=== PATIENT | female | born 1990 | race Caucasian/White ===

== ENCOUNTER 2024-08-15 09:48 | Outpatient (CLI) | payer BC, SELFPAY ==
--- NOTE | ~2024-08-15 | CT_ITS ---
CT scan of the Neck Technique: 2.5 mm axial scans were obtained through the neck after intravenous administration of 75 c c Omnipaque 350. Coronal and sagittal reconstructions of the neck were obtained. Dose reduction techn ique was used on this scan by utilizing automated exposure control and iterative reconstruction techn ique. The dose-length product (DLP) was 340.03 mGy-cm. Clinical History: Lymphadenitis Findings: There is no evidence of any significant cervical lymphadenopathy. Several small, nonenlarged jugulo- digastric and posterior cervical lymph nodes are noted bilaterally. Parapharyngeal spaces appear norm al bilaterally. The parotid and submandibular glands appear normal. The pharyngeal mucosal spaces appear normal. No soft tissue masses are seen in the neck. The thyroid gland appears normal. Images of the lung apices reveal no abnormalities. Impression: No significant abnormalities noted. Reviewed, dictated and finalized at [facility]. Impression: No significant abnormalities noted.
== END 2024-08-15 09:49 | disposition home or self-care (01) ==
LOC: MICIMG 09:50
PROVIDERS: PCP Nurse Practitioner; Visit Provider Family Medicine
DX: I88.9 Nonspecific lymphadenitis, unspecified (principal)
CPT/HCPCS: 70491; Q9967

== ENCOUNTER 2024-10-11 13:41 | Outpatient (CLI) | payer BC, SELFPAY ==
--- NOTE | ~2024-10-11 | MR_ITS ---
EXAMINATION: MR brain/brain stem wo con DATE: 10/11/2024 14:09 INDICATION: Migraine headaches TECHNIQUE: Magnetic resonance imaging (MRI) of the brain and brainstem was performed without intravenous contrast. Sequences included sagittal and axial T1-weighted SE, axial diffusion-weighted FS SE, axial T2*-weighted GRE, axial T2-weighted FLAIR Propeller, and axial T2-weighted Propeller. Apparent diffusion coefficient (ADC) maps were created. COMPARISON: None. FINDINGS: Brain parenchymal volume is normal for age. Normal toledo-white differentiation. No ventriculomegaly or midline shift. Structures of the posterior fossa including 7/8th cranial nerve complexes are normal. No acute infarction, hemorrhage, mass or mass effect. Orbits are symmetric. Paranasal sinuses are unremarkable. Midline sagittal images demonstrate a normal corpus callosum and craniovertebral junction. IMPRESSION: 1. Unremarkable MRI of the brain. Reviewed, dictated and finalized at location O.
== END 2024-10-11 13:42 | disposition home or self-care (01) ==
LOC: MICIMG 13:42
PROVIDERS: PCP Family Medicine; Visit Provider Family Medicine
DX: G43.909 Migraine, unspecified, not intractable, without status migrainosus (principal)
CPT/HCPCS: 70551

== ENCOUNTER 2025-02-12 10:48 | Outpatient (CLI) | payer BC, MEDICAID, SELFPAY ==
--- NOTE | ~2025-02-12 | US_ITS ---
EXAMINATION: US OB <=14 wk fetus w TV, US OB <= 14 wk fetus add gest DATE: 05/29/16 13:35:00 INDICATION: Establish dating of first trimester twin TECHNIQUE: Real-time pelvic ultrasound utilizing both a transvaginal and transabdominal probe was performed. The interpreting radiologist was not present for the study. COMPARISON: None. FINDINGS: The uterus measures 12.1 x 6.2 x 8.0 cm. There are 2 separate intrauterine gestational sacs by a thick membrane. A yolk sac and pole are identified in each gestational sac. 12 x 11 x 8 mm hypoechoic likely subchorionic hematoma situated between the inferior margin of the gestational s acs. The crown rump length for fetus A in the sac positioned on the right measures 10 mm, which correlates with an estimated gestational age of 7 weeks and 1 days. heart motion is identified measuring 139 beats per minute (bpm) by M-mode Doppler. The crown rump length for fetus A in the sac positioned on the left measures 10 mm, which correlates with an estimated gestational age of 7 weeks and 1 days. heart motion is identified measuring 130 beats per minute (bpm) by M-mode Doppler. The right ovary measures 2.4 x 2.4 x 1.6 cm. The left ovary measures 3.1 x 2.9 x 1.7 cm. There is small amount of anechoic free fluid in the cul-de-sac. IMPRESSION: 1. Dichorionic, diamnionic with 2 living fetuses. 2. Gestational age by ultrasound of 7 weeks 1 day(s) +/- 5 day(s) with ultrasound estimated date of delivery (SEAN) of 09/30/2025 . 3. Small subchorionic hematoma. Reviewed, dictated and finalized at location A. S REPRESENTATIVE EDUCATION COURSES IMPRESSION: 1. Dichorionic, diamnionic with 2 living fetuses. 2. Gestational age by ultrasound of 7 weeks 1 day(s) +/- 5 day(s) with ultraso und estimated date of delivery (SEAN) of 09/30/2025 . 3. Small subchorionic hematoma.
== END 2025-02-12 10:49 | disposition home or self-care (01) ==
PROVIDERS: PCP Registered Nurse; Visit Provider Registered Nurse
DX: Z34.91 Encounter for supervision of normal pregnancy, unspecified, first trimester (principal); Z3A.01 Less than 8 weeks gestation of pregnancy
CPT/HCPCS: 76801; 76802; 76817